=== PATIENT | male | born 1980 | race African-American/Black ===

== ENCOUNTER 2017-07-11 14:25 | Inpatient (IN) | payer MEDICAID ==
[~2017-07-11] VITALS: Ht 170.2 cm; Wt 56.9 kg
[2017-07-18] VITALS (15 sets, daily range): BP systolic 104–156; BP diastolic 63–99; PULSE 58–68; RESP 14–20; Ht 170.2 cm; Wt 56.9 kg
[2017-07-18 10:58] LABS: BASOPHILS % 0.3 % (0.0-2.0); EOSINOPHILS # 0.1 10^3/ul (0.0-0.5); HEMATOCRIT 44.5 % (42.0-52.0); HEMOGLOBIN 15.5 g/dl (14.0-18.0); LYMPHOCYTES # 1.7 10^3/ul (0.8-2.9); LYMPHOCYTES % 25.4 % (15.0-51.0); MEAN CORPUSCULAR HEMOGLOBIN 30.9 pg (29.0-33.0); MEAN CORPUSCULAR HGB CONC 34.8 g/dl (32.0-37.0); MEAN CORPUSCULAR VOLUME 88.6 fl (82.0-101.0); MEAN PLATELET VOLUME 9.9 fl (7.4-10.4); MONOCYTE # 0.5 10^3/ul (0.3-0.9); MONOCYTES % 7.8 % (0.0-11.0); NEUTROPHIL # 4.4 10^3/ul (1.6-7.5); NEUTROPHILS % 65.2 % (39.0-77.0); PLATELET COUNT 208 10^3/UL (140-415); RED BLOOD COUNT 5.02 10^6/ul (4.70-6.10); RED CELL DISTRIBUTION WIDTH 13.5 % (11.5-14.5); WHITE BLOOD COUNT 6.7 10^3/ul (4.8-10.8)
[2017-07-18] MEDS ORDERED: SOD CHLORIDE 0.9% 1,000 ML IV ONE (11:00)
[2017-07-18] MEDS ORDERED: AMPICILLIN/SULB 3 GM/NS (PMX) 100 ML IVPB ONE (11:00)
[2017-07-18 11:05] LABS: ALBUMIN 4.3 g/dl (3.3-4.9); ALBUMIN/GLOBULIN RATIO 1.26; BILIRUBIN,INDIRECT 0.9 mg/dl (0-1.1); BILIRUBIN,TOTAL 0.9 mg/dl (0.2-1.3); TOTAL PROTEIN 7.7 g/dl (6.1-8.1)
[2017-07-18 11:08] LABS: INR 0.95; PROTIME 12.7 Sec (12.2-14.2)
[2017-07-18 11:09] LABS: CALCIUM 9.3 mg/dl (8.4-10.2); CREATININE 1.04 mg/dl (0.61-1.24); PARTIAL THROMBOPLASTIN TIME 31.9 Sec (25.0-35.0); POTASSIUM 3.9 mmol/L (3.5-5.1)
[2017-07-18] MEDS ORDERED: LIDOCAINE 2% (SDV) 5 ML INJ ONE (14:02)
[2017-07-18] MEDS ORDERED: ROCURONIUM 50 MG INJ ONE (14:02)
[2017-07-18] MEDS ORDERED: FENTAnyl 50 MCG/ML VIAL ONE ×2 (14:02→14:31)
[2017-07-18] MEDS ORDERED: PROPOFOL 20 ML ONE (14:02)
[2017-07-18] MEDS ORDERED: MIDAZOLAM 1 MG/ML 2 ML INJ ONE (14:02)
[2017-07-18] MEDS ORDERED: CEFAZOLIN 1 GM INJ ONE (14:14)
[2017-07-18] MEDS ORDERED: ROPIVACAINE 0.2% 20 ML VIAL ONE (15:14)
[2017-07-18] MEDS ORDERED: SUGAMMADEX SODIUM 200 MG/2 ML VIAL IV ONE (15:21)
[2017-07-18] MEDS ORDERED: ONDANSETRON 4 MG INJ ONE (15:24)
[2017-07-18] MEDS ORDERED: FAMOTIDINE 20 MG INJ ONE (15:25)
--- NOTE | 2017-07-18 15:29 | SIPON ---
Date/Time of Note Date/Time of Note DATE: 07/18/17 TIME: 15:27 Operative Report Preoperative Diagnosis Need for ileostomy closure Postoperative Diagnosis Same Operation/Procedure Performed Exploratory laparotomy and small bowel resection with closure of ileostomy Surgeon see signature line assistant front desk manager None Anesthesia: general Estimated blood loss: 10 - 50 ml's Transfusion Required none Specimen Portion of small bowel at ileostomy site Grafts/Implants none Complications none SKINNY GUTIERREZ MD Jul 18, 2017 15:29
[2017-07-18] MEDS ORDERED: HYDROmorphONE (0.2 MG/ML) 10ML SYG IV ONE (15:36)
[2017-07-18] MEDS: HYDROmorphONE (0.2 MG/ML) 10ML SYG IV PRN ×3 (15:48→16:02)
[2017-07-18] MEDS ORDERED: HYDROmorphONE (0.2 MG/ML) 10ML SYG IV PRN (16:00)
[2017-07-18] MEDS: PIPER-TAZO 3.375 GM IV (PMX) 100 ML IVPB SCH (17:06)
[2017-07-18] MEDS: D5W-0.45 NACL + KCL 20 MEQ 1,000 ML IV SCH (17:07)
[2017-07-18] MEDS ORDERED: IBUPROFEN 400 MG TAB PO PRN (17:30)
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
[2017-07-18] MEDS: morphine 2 MG INJ IV PRN ×2 (18:44→21:11)
[2017-07-18] MEDS: ONDANSETRON 4 MG INJ IV PRN (21:18)
[2017-07-19] MEDS: D5W-0.45 NACL + KCL 20 MEQ 1,000 ML IV SCH ×3 (01:51→14:20)
[2017-07-19] MEDS: PIPER-TAZO 3.375 GM IV (PMX) 100 ML IVPB SCH ×3 (01:51→18:17)
[2017-07-19 02:00] VITALS: BP 110/63; RESP 20
[2017-07-19 07:59] VITALS: BP 115/71; RESP 20
[2017-07-19] MEDS ORDERED: HYDROmorphONE 0.5 MG/0.5 ML SYG IV PRN (13:30)
[2017-07-19] MEDS ORDERED: KETOROLAC 30 MG INJ IV PRN (13:30)
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
[2017-07-19 14:14] VITALS: BP 117/63; RESP 20
[2017-07-19 20:00] VITALS: BP 102/55; RESP 18
[2017-07-20] MEDS: D5W-0.45 NACL + KCL 20 MEQ 1,000 ML IV SCH ×4 (00:08→19:33)
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
[2017-07-20 02:41] VITALS: BP 110/56; RESP 18
[2017-07-20] MEDS: PIPER-TAZO 3.375 GM IV (PMX) 100 ML IVPB SCH ×2 (03:04→10:04)
[2017-07-20 05:37] LABS: BASOPHILS % 0.1 % (0.0-2.0); EOSINOPHILS % 0.5 % (0.0-7.0); HEMATOCRIT 25.1 % (42.0-52.0); HEMOGLOBIN 8.6 g/dl (14.0-18.0); LYMPHOCYTES # 2.2 10^3/ul (0.8-2.9); LYMPHOCYTES % 26.8 % (15.0-51.0); MEAN CORPUSCULAR HGB CONC 34.3 g/dl (32.0-37.0); MEAN CORPUSCULAR VOLUME 90.6 fl (82.0-101.0); MEAN PLATELET VOLUME 9.9 fl (7.4-10.4); MONOCYTE # 0.7 10^3/ul (0.3-0.9); MONOCYTES % 8.6 % (0.0-11.0); NEUTROPHIL # 5.3 10^3/ul (1.6-7.5); NEUTROPHILS % 63.5 % (39.0-77.0); PLATELET COUNT 148 10^3/UL (140-415); RED BLOOD COUNT 2.77 10^6/ul (4.70-6.10); RED CELL DISTRIBUTION WIDTH 13.1 % (11.5-14.5); WHITE BLOOD COUNT 8.4 10^3/ul (4.8-10.8)
[2017-07-20 06:33] LABS: CREATININE 1.14 mg/dl (0.61-1.24); POTASSIUM 3.7 mmol/L (3.5-5.1)
[2017-07-20 07:47] VITALS: BP 108/54; RESP 18
[2017-07-20 13:54] VITALS: BP 109/59; RESP 18
[2017-07-20 15:26] LABS: HEMATOCRIT 23.4 % (42.0-52.0); HEMOGLOBIN 8.1 g/dl (14.0-18.0)
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
[2017-07-20 20:15] VITALS: BP 135/63; RESP 18
[2017-07-21 02:38] VITALS: BP 111/55; RESP 18
[2017-07-21 04:03] LABS: HEMATOCRIT 23.4 % (42.0-52.0)
[2017-07-21] MEDS: D5W-0.45 NACL + KCL 20 MEQ 1,000 ML IV SCH ×4 (05:23→23:29)
[2017-07-21 08:22] VITALS: BP 109/57; RESP 18
[2017-07-21 10:59] LABS: HEMATOCRIT 22.5 % (42.0-52.0); HEMOGLOBIN 7.8 g/dl (14.0-18.0)
[2017-07-21 14:57] LABS: HEMOGLOBIN 8.5 g/dl (14.0-18.0)
--- NOTE | 2017-07-21 18:08 | PN ---
DATE: 07/21/2017 Status post laparotomy, small bowel resection, closure of ileostomy. SUBJECTIVE: Feels okay. No nausea, no vomiting. Has been out of bed to the bathroom, has had jesenia ral small liquidish bowel movement, brownish in color. OBJECTIVE: GENERAL: Awake, alert, oriented x3. VITAL SIGNS: Temperature 98.5, heart rate 64, respirations 18, blood pressure 109/57, saturation 10 0%. HEART: Regular. LUNGS: Clear. ABDOMEN: Soft. LABORATORY DATA: Last hemoglobin at 2:00 p.m. today is 8.4, hematocrit 24. Actually it has been st able since yesterday morning. The stool has been positive for occult blood. ASSESSMENT AND PLAN: A 37-year-old male who underwent closure of ileostomy on Tuesday, that was two days ago. Postop yesterday, the hemoglobin showed drop 8.5 postop. A q.6h. H and H control w as ordered which has been stable so far. The patient has had bowel movement, liquidish brown which is positive for occult blood. Urine output is okay. Most probably he has had some bleeding intralu minally. Will observe the patient for more bleeding. Will check the H and H every 6 to every 8 enoc rs. Will give the patient clear liquids, although he wants to eat solid food. Will continue to obs erve. Dictated By: GILA LONDON/MARCO Conf#: [id number] DID#: [id number]
[2017-07-21 20:00] VITALS: BP 118/71; RESP 16
[2017-07-22] VITALS: BP 117/63; RESP 16
[2017-07-22 03:01] LABS: HEMATOCRIT 22.5 % (42.0-52.0); HEMOGLOBIN 7.8 g/dl (14.0-18.0)
[2017-07-22 04:00] VITALS: BP 117/59; RESP 18
[2017-07-22] MEDS: D5W-0.45 NACL + KCL 20 MEQ 1,000 ML IV SCH ×5 (05:27→23:29)
[2017-07-22 07:41] VITALS: BP 126/77; RESP 20
[2017-07-22 07:45] VITALS: BP 118/69; RESP 18
[2017-07-22 10:32] LABS: BASOPHILS % 0.2 % (0.0-2.0); EOSINOPHILS # 0.1 10^3/ul (0.0-0.5); EOSINOPHILS % 0.5 % (0.0-7.0); HEMATOCRIT 27.8 % (42.0-52.0); HEMOGLOBIN 9.6 g/dl (14.0-18.0); LYMPHOCYTES # 2.1 10^3/ul (0.8-2.9); LYMPHOCYTES % 23.4 % (15.0-51.0); MEAN CORPUSCULAR HEMOGLOBIN 31.4 pg (29.0-33.0); MEAN CORPUSCULAR HGB CONC 34.5 g/dl (32.0-37.0); MEAN CORPUSCULAR VOLUME 90.8 fl (82.0-101.0); MEAN PLATELET VOLUME 9.9 fl (7.4-10.4); MONOCYTE # 0.7 10^3/ul (0.3-0.9); MONOCYTES % 7.7 % (0.0-11.0); NEUTROPHIL # 6.2 10^3/ul (1.6-7.5); NEUTROPHILS % 67.8 % (39.0-77.0); PLATELET COUNT 210 10^3/UL (140-415); RED BLOOD COUNT 3.06 10^6/ul (4.70-6.10); RED CELL DISTRIBUTION WIDTH 13.2 % (11.5-14.5); WHITE BLOOD COUNT 9.2 10^3/ul (4.8-10.8)
--- NOTE | 2017-07-22 12:14 | PN ---
DATE: 07/22/2017 Postop day #4 status post laparotomy, small bowel resection, resection of segmental closure of ileos rebecca. SUBJECTIVE: Feels okay, has had bowel movement, two of them. No nausea, no vomiting, no dizziness. OBJECTIVE GENERAL: Awake, alert, oriented x3. VITAL SIGNS: Temperature 98.7, heart rate 70, respiration 18, blood pressure 118/69, saturation 100 % on room air. HEART: Regular. LUNGS: Clear. ABDOMEN: Soft. Dressing changed, wound clean. Norberto-Beaver drain is 5 mL for 24 hours. LABORATORY DATA: Hemoglobin is stable at 9.6, hematocrit 27.8. ASSESSMENT: A 37-year-old male with diverting ileostomy, was admitted for reversal. It was done gardiner rgically. Postop patient was doing fine. The only problem was hemoglobin dropped from 15 to 8. Th e patient had positive blood in the stool in the past 48 hours. The hemoglobin has stayed stable, t alejandrina is 9.7, yesterday was 8. PLAN: Advance diet to soft diet. We will observe him for 48 more hours, if stable, he can be disch arged. Dictated By: GILA EMMANUEL MD PS/NTS Conf#: [id number] DID#: [id number]
[2017-07-22 13:04] VITALS: BP 111/69; RESP 18
[2017-07-22] MEDS: NEOMYC/POLYMYX/BACIT 30 GM OINT TOP SCH (13:54)
[2017-07-22 19:30] VITALS: BP 111/72; PULSE 63; RESP 16
[2017-07-22 19:39] LABS: HEMATOCRIT 25.2 % (42.0-52.0); HEMOGLOBIN 8.8 g/dl (14.0-18.0)
[2017-07-23 01:50] VITALS: BP 120/61; PULSE 66; RESP 16
[2017-07-23] MEDS: D5W-0.45 NACL + KCL 20 MEQ 1,000 ML IV SCH ×3 (01:51→15:28)
[2017-07-23 07:42] VITALS: BP 110/59; RESP 18
[2017-07-23 10:50] LABS: HEMATOCRIT 26.5 % (42.0-52.0); HEMOGLOBIN 8.9 g/dl (14.0-18.0)
[2017-07-23] MEDS ORDERED: MAGNESIUM HYDROXIDE 30ML CUP PO PRN (11:30)
[2017-07-23] MEDS ORDERED: HYDROCODONE/APAP (5/325) TAB PO PRN (11:30)
[2017-07-23 14:32] VITALS: BP 120/74; RESP 18
[2017-07-23] MEDS: ONDANSETRON 4 MG INJ IV PRN (15:06)
[2017-07-23] MEDS ORDERED: HYDROmorphONE 0.5 MG/0.5 ML SYG IV PRN (16:00)
--- NOTE | 2017-07-23 17:27 | RADRPT ---
PROCEDURE: XR Abdomen. CLINICAL INDICATION: Abdomen pain. TECHNIQUE: AP supine abdomen x-ray. COMPARISON: None. FINDINGS: There has been recent surgery with skin timothy in the right lower quadrant and a surgical drain in the right lower quadrant. Surgical timothy are present in the left and right side of the abdomen. There is mildly dilated small bowel in the midabdomen which may be due to obstruction or ileus. Gas is present in the colon. There are no abnormal calcifications overlying the urinary tracts. The osseus structures are unremarkable. IMPRESSION: 1. Recent surgery. 2. Ileus or obstruction. Follow-up advised. RPTAT: QQ .Link Lang MD, MD Date Time Electronically viewed and signed by .Link Lang MD, MD on 07/23/2017 17:27 .R/
[2017-07-23 20:09] VITALS: BP 117/59; RESP 20
[2017-07-24] MEDS: D5W-0.45 NACL + KCL 20 MEQ 1,000 ML IV SCH ×2 (01:45→17:58)
--- NOTE | 2017-07-24 02:39 | PN ---
DATE: 07/23/2017 CHIEF COMPLAINT: Status post laparotomy, small bowel segmental resection and closure of ileostomy r elizabeth. Postop day #5. SUBJECTIVE: Even though has not had pain yesterday, but today he complains of pain in the right low er quadrant requiring pain medication. No nausea, no vomiting, no bowel movement. OBJECTIVE: GENERAL: Awake, alert, oriented. VITAL SIGNS: Temperature 98.8 and 98.1 today, heart rate 66 (regular), respiration 18, blood pressu re 116/59, respirations 18, saturation 99% on room air. Hemoglobin stable at 8.9 today, hematocrit 26.5. HEART: Regular. LUNGS: Clear. ABDOMEN: Soft. Wounds clean. Norberto-Beaver, minimal drainage, serosanguineous. Abdomen is soft. LABORATORY DATA: WBC 9200 with 67% segmented. ASSESSMENT: Postop day #5 for reversal of ileostomy. The patient is doing fine. He has not had a bowel movement though he was started on regular diet last night and today he had pain which did not exist yesterday so still requiring pain medication. PLAN: Continue to watch 1 more day. Waiting for bowel movement. If the hemoglobin and hematocrit are stable by tomorrow morning, which is Tuesday, will discharge the patient. Dictated By: GILA LONDON/MARCO Conf#: [id number] DID#: [id number]
[2017-07-24 02:43] VITALS: BP 108/59; RESP 20
[2017-07-24 06:18] LABS: BASOPHILS % 0.1 % (0.0-2.0); EOSINOPHILS # 0.1 10^3/ul (0.0-0.5); EOSINOPHILS % 0.8 % (0.0-7.0); HEMOGLOBIN 9.2 g/dl (14.0-18.0); LYMPHOCYTES # 2.1 10^3/ul (0.8-2.9); LYMPHOCYTES % 24.8 % (15.0-51.0); MEAN CORPUSCULAR HEMOGLOBIN 31.2 pg (29.0-33.0); MEAN CORPUSCULAR HGB CONC 34.1 g/dl (32.0-37.0); MEAN CORPUSCULAR VOLUME 91.5 fl (82.0-101.0); MEAN PLATELET VOLUME 10.3 fl (7.4-10.4); MONOCYTES % 12.4 % (0.0-11.0); NEUTROPHIL # 5.1 10^3/ul (1.6-7.5); NEUTROPHILS % 61.7 % (39.0-77.0); PLATELET COUNT 251 10^3/UL (140-415); RED BLOOD COUNT 2.95 10^6/ul (4.70-6.10); RED CELL DISTRIBUTION WIDTH 13.7 % (11.5-14.5); WHITE BLOOD COUNT 8.3 10^3/ul (4.8-10.8)
[2017-07-24 06:59] LABS: CALCIUM 9.5 mg/dl (8.4-10.2); CREATININE 1.07 mg/dl (0.61-1.24); POTASSIUM 4.2 mmol/L (3.5-5.1)
[2017-07-24 08:01] VITALS: BP 108/67; RESP 14
--- NOTE | 2017-07-24 09:14 | RADRPT ---
PROCEDURE: XR Abdomen. CLINICAL INDICATION: Abdominal pain. Postop. TECHNIQUE: AP supine abdomen x-ray. COMPARISON: 07/23/2017. FINDINGS: There has been recent surgery with skin timothy in the right lower quadrant and a surgical drain in the right lower quadrant. Surgical timothy are present in the left and right side of the abdomen. There is mildly dilated small bowel in the midabdomen which may be due to obstruction or ileus, impr ramon. Left gas is present in the colon. There are no abnormal calcifications overlying the urinary tracts. The osseus structures are unremarkable. IMPRESSION: 1. Recent surgery. 2. Improved ileus or obstruction. RPTAT: QQ .Link Lang MD, MD Date Time Electronically viewed and signed by .Link Lang MD, on 07/24/2017 09:14 .R/
[2017-07-24] MEDS: NEOMYC/POLYMYX/BACIT 30 GM OINT TOP SCH (14:48)
--- NOTE | 2017-07-24 16:02 | PN ---
DATE: 07/24/2017 SUBJECTIVE: Status post laparotomy, small bowel resection, segmental, and closure of ileostomy. Fe els better today. Yesterday afternoon, the patient vomited and we kept him n.p.o. We got a KUB whi ch showed evidence of ileus or obstruction of the small bowel. So the patient was kept n.p.o. and I V restarted today. He feels better. No nausea, no vomiting. Had a small bowel movement. Pain is much less. OBJECTIVE GENERAL: Awake, alert, oriented x3. VITAL SIGNS: Stable. He is walking in the hallway. Last night, temperature has been 99.6, but tod ay is 98.1. Heart rate 60, respirations 20, blood pressure 108/67, saturation 99% on room air. HEART: Regular. LUNGS: Clear. ABDOMEN: Soft, wound is clean. Bowel sounds present. Today's KUB was reported as improvement of t he obstructive pattern. LABORATORIES: Sodium, potassium, BUN, creatinine within normal limits: Hematology: WBC today is 8 300, hemoglobin 9.2, hematocrit 27, stable. ASSESSMENT: A 37-year-old female who underwent laparotomy, segmental bowel resection, reversal of i leostomy. Postop was doing fine. Gradually advance the diet yesterday, vomited in the afternoon an d last night had temperature 99.6. X-ray was suggestive of ileus or obstruction, but today the x-ra ys shows resolution of the pattern. The patient is hungry, bowel sounds present and had small bowel movement. So we will start him back on a soft diet. Keep IV. If everything is okay, will dischar ge him tomorrow. Dictated By: GILA LONDON/MARCO Conf#: [id number] DID#: [id number]
[2017-07-24 20:00] VITALS: BP 116/72; RESP 18
[2017-07-25 02:59] VITALS: BP 110/71; RESP 16
[2017-07-25] MEDS: D5W-0.45 NACL + KCL 20 MEQ 1,000 ML IV SCH (07:18)
[2017-07-25 07:31] VITALS: BP 102/59; RESP 20
--- NOTE | 2017-07-25 12:51 | PN ---
DATE: 07/25/2017 Status post laparotomy, small bowel, sigmoid resection and reversal of ileostomy, postop day #7. SUBJECTIVE: Feels good. Tolerated diet, had a bowel movement. No dizziness. OBJECTIVE: GENERAL: Alert, awake and oriented x3. VITAL SIGNS: Temperature 97.9. 58. 20. 102/59. 99% room air. ABDOMEN: Soft, Norberto-Beaver minimal drainage. LABORATORIES: No lab data available today. PLAN: Discharge the patient today to follow with Dr. Baird. Leave Norberto-Beaver in to be removed b y Dr. Baird in the office. Dictated By: GILA EMMANUEL MD PS/NTS Conf#: [id number] DID#: [id number]
[2017-07-25 13:09] VITALS: BP 110/62; RESP 20
== END 2017-07-25 14:25 | disposition home or self-care (01) | DRG 330 ==
LOC: REC 07-18 09:56 → MS2 07-18 16:40
PROVIDERS: ADMIT Surgery Surgical Oncology; ATTEND Surgery Surgical Oncology
PROC: 0DQB0ZZ Repair Ileum, Open Approach (ICD-10-PCS; principal; 2017-07-18 13:00)
DX: Z43.2 Encounter for attention to ileostomy (principal); R71.0 Precipitous drop in hematocrit; K92.1 Melena
CPT/HCPCS: 74000; 80048; 80053; 82270; 85014; 85018; 85025; 85610; 85730; 88305; J0295; J0690; J1170; J1885; J2250; J2270; J2405; J2543; J2795; J3010; J3480; J7030